=== PATIENT | male | born 1980 | race Two or more races ===

== ENCOUNTER 2016-10-01 01:15 | Emergency (ER) | payer SELFPAY ==
[~2016-10-01] VITALS: Ht 167.6 cm; Wt 68.5 kg
[2016-10-01] MEDS ORDERED: TDAP [DIPH/PERTUSSIS/TET] 0.5 ML VIAL IM ONE ×2 (01:26→01:30)
[2016-10-01] MEDS ORDERED: CEPHALEXIN MONOHYDRATE 500 MG CAPSULE PO ONE ×2 (01:26→01:30)
[2016-10-01] MEDS ORDERED: SODIUM BICARBONATE 5 ML VIAL MC ONE (01:30)
[2016-10-01] MEDS ORDERED: LIDOCAINE 1%-EPI 1:100,000 20 ML VIAL TP ONE (01:30)
[2016-10-01 04:03] VITALS: BP 123/67
== END 2016-10-01 04:05 | disposition home or self-care (01) ==
LOC: ER 01:16
DX: S01.81XA Laceration without foreign body of other part of head, initial encounter (principal); S40.012A Contusion of left shoulder, initial encounter; S09.90XA Unspecified injury of head, initial encounter; Y08.89XA Assault by other specified means, initial encounter; Y93.89 Activity, other specified; Y92.89 Other specified places as the place of occurrence of the external cause; Y99.8 Other external cause status
CPT/HCPCS: 12013; 70450; 72125; 73030; 90715; 99284; A4606; Z7610